=== PATIENT | male | born 1990 | race Caucasian/White ===

== ENCOUNTER 2024-04-21 13:49 | Emergency (ER) | payer OTHER ==
--- NOTE | 2024-04-21 17:21 | ED Physician Documentation ---
PD HPI HEENT - Stated complaint Stated Complaint: THROAT PX/SWELLING - Chief complaint Chief Complaint: Heent - Additional information Additional information: 34-year-old male treated for group A strep about a week and a half ago with penicillin. He was starting to feel better and then about 2-3 days ago patient started to feel ill again no fevers this time but worsening throat pain malaise and feeling rundown. He has no pertinent past medical history no difficulty breathing no chest pain or shortness of breath. PD PAST MEDICAL HISTORY - Past Medical History Past Medical History: No - Past Surgical History Past Surgical History: No - Present Medications Home Medications: Ambulatory Orders Medication Instructions Recorded Confirmed cephALEXin [Keflex] 500 mg PO BID 10 Days #20 cap 04/21/24 - Allergies Allergies/Adverse Reactions: Allergies Allergy/AdvReac Type Severity Reaction Status Date / Time No Known Drug Allergies Allergy Verified 04/21/24 14:04 - Social History Does the pt smoke?: Yes Smoking Status: Current every day smoker Does the pt drink ETOH?: No Does the pt have substance abuse?: No - Immunizations Immunizations are current?: Yes PD ED PE NORMAL - Vitals Vital signs reviewed: Yes - General General: Alert and oriented X 3, No acute distress, Well developed/nourished - HEENT HEENT: Moist mucous membranes, Other (Erythema to pharynx no exudate tonsils 2+ bilaterally) - Neck Neck: Supple, no meningeal sign - Cardiac Cardiac: RRR - Respiratory Respiratory: No respiratory distress - Abdomen Abdomen: Normal bowel sounds Results - Vitals Vitals: Vital Signs - 24 hr 04/21/24 04/21/24 14:01 18:05 Temperature 36.9 C 36.6 C Heart Rate 70 57 L Respiratory 16 16 Rate Blood Pressure 122/69 119/73 O2 Saturation 99 100 Oxygen O2 Source Room air - Labs Labs: Laboratory Tests 04/21/24 15:50 Nasal Adenovirus (PCR) NOT DETECTED Nasal B. parapertussis DNA (PCR) NOT DETECTED Nasal Coronavir 229E PCR NOT DETECTED Nasal Coronavir HKU1 PCR NOT DETECTED Nasal Coronavir NL63 PCR NOT DETECTED Nasal Coronavir OC43 PCR NOT DETECTED Nasal Enterovir/Rhinovir PCR NOT DETECTED Nasal Influenza B PCR NOT DETECTED Nasal Influenza A PCR NOT DETECTED Nasal Parainfluen 1 PCR NOT DETECTED Nasal Parainfluen 2 PCR NOT DETECTED Nasal Parainfluen 3 PCR NOT DETECTED Nasal Parainfluen 4 PCR NOT DETECTED Nasal RSV (PCR) NOT DETECTED Nasal B.pertussis DNA PCR NOT DETECTED Nasal C.pneumoniae (PCR) NOT DETECTED Ponce Human Metapneumo PCR NOT DETECTED Nasal M.pneumoniae (PCR) NOT DETECTED Nasal SARS-CoV-2 (PCR) NOT DETECTED PD Medical Decision Making - ED course ED course: 34-year-old male presents emergency department for repeat tonsillar pain and exudate he is also checked into the ER with his and his 2 children who have similar symptoms and concerns. Nasal swab was been complete and results are come back negative. His 2 children tested positive for rhinovirus and his son tested positive for strep. We went ahead and started patient on antibiotics again first dose of Keflex given here in the emergency department I went ahead with Keflex given that he was already on penicillin VK recently for group A strep. Patient was given strict ER return precautions all questions answered he is safe for discharge. Departure - Departure Disposition: 01 Home, Self Care Clinical Impression: Strep throat Instructions: ED Strep Pharyngitis Poss Prescriptions: cephALEXin [Keflex] 500 mg PO BID 10 Days #20 cap Comments: Thank you for trusting us with your care. Given that your child has tested positive for strep and you are now feeling the symptoms again it is very likely that you have strep again. We have started you on Keflex here in the emergency department here in the emergency department sent a prescription of Keflex was sent to your preferred pharmacy. You will take 500 mg twice a day in the next 10 days. we have also sent a respiratory swab to the lab and we will call you if this tested positive for anything. Go home and rest Tylenol ibuprofen for pain and discomfort follow-up with primary care provider as needed. Forms: PCP List Discharge Date/Time: 04/21/24 18:40
[2024-04-21] MEDS: IBUPROFEN 200 MG/10 ML UDC PO STA (17:47)
[2024-04-21] MEDS: PENICILLIN VK 250 MG TABLET PO STA (18:01)
[2024-04-21] MEDS: PENICILLIN G BENZATHINE 1,200,000 UNIT/2 ML SYRINGE IM STA (18:01)
[2024-04-21 18:11] VITALS: BP 119/73; O2SAT 100
[2024-04-21 18:32] LABS: B. PARAPERTUSSIS- RESP PCR PAN NOT DETECTED; B. PERTUSSIS- RESP PCR PANEL NOT DETECTED; C. PNEUMONIAE- RESP PCR PANEL NOT DETECTED; CORONAVIRUS 229E-RESP PCR NOT DETECTED; CORONAVIRUS HKU1-RESP PCR NOT DETECTED; CORONAVIRUS NL63-RESP PCR NOT DETECTED; CORONAVIRUS OC43-RESP PCR NOT DETECTED; HUMAN METAPNEUMOVIRUS NOT DETECTED; INFLUENZA A- RESP PCR PANEL NOT DETECTED; INFLUENZA B - RESP PCR PANEL NOT DETECTED; M. PNEUMONIAE- RESP PCR PANEL NOT DETECTED; PARAINFLUENZA VIRUS 1 NOT DETECTED; PARAINFLUENZA VIRUS 2 NOT DETECTED; PARAINFLUENZA VIRUS 3 NOT DETECTED; PARAINFLUENZA VIRUS 4 NOT DETECTED; RHINOVIRUS/ENTEROVIRUS NOT DETECTED; RSV- RESP PCR PANEL NOT DETECTED; SARS-CoV-2 -RESP PCR PANEL NOT DETECTED
[2024-04-21] MEDS: cephALEXin 250 MG CAPSULE PO STA (18:33)
== END 2024-04-21 18:40 | disposition home or self-care (01) ==
LOC: ED 13:49
DX: J02.0 Streptococcal pharyngitis (principal); F17.200 Nicotine dependence, unspecified, uncomplicated
CPT/HCPCS: 87633; 99283

== ENCOUNTER 2024-07-15 10:12 | Emergency (ER) | payer OTHER ==
[2024-07-15 10:59] VITALS: O2SAT 99
[2024-07-15 12:01] LABS: B. PARAPERTUSSIS- RESP PCR PAN NOT DETECTED; B. PERTUSSIS- RESP PCR PANEL NOT DETECTED; C. PNEUMONIAE- RESP PCR PANEL NOT DETECTED; CORONAVIRUS 229E-RESP PCR NOT DETECTED; CORONAVIRUS HKU1-RESP PCR NOT DETECTED; CORONAVIRUS NL63-RESP PCR NOT DETECTED; CORONAVIRUS OC43-RESP PCR NOT DETECTED; HUMAN METAPNEUMOVIRUS DETECTED; INFLUENZA A- RESP PCR PANEL NOT DETECTED; INFLUENZA B - RESP PCR PANEL NOT DETECTED; M. PNEUMONIAE- RESP PCR PANEL NOT DETECTED; PARAINFLUENZA VIRUS 1 NOT DETECTED; PARAINFLUENZA VIRUS 2 NOT DETECTED; PARAINFLUENZA VIRUS 3 NOT DETECTED; PARAINFLUENZA VIRUS 4 NOT DETECTED; RHINOVIRUS/ENTEROVIRUS DETECTED; RSV- RESP PCR PANEL NOT DETECTED; SARS-CoV-2 -RESP PCR PANEL NOT DETECTED
--- NOTE | 2024-07-15 13:16 | ED Physician Documentation ---
History of Present Illness - Stated complaint Stated Complaint: SOA COUGH - Chief complaint Chief Complaint: General - Additonal information Additional information: 34-year-old male, Aguilares, presents with cough congestion body aches fatigue. Symptoms for a couple of days. He had close contact with somebody that turned out to be COVID-positive and would like a COVID test today. He denies any fever, no respiratory distress, no abdominal pain nausea vomiting or diarrhea, no chest pain. PD PAST MEDICAL HISTORY - Past Medical History Past Medical History: No Cardiovascular: None Respiratory: None Neuro: None Endocrine/Autoimmune: None GI: None : None HEENT: None Psych: None Musculoskeletal: None Derm: None - Past Surgical History Past Surgical History: No - Present Medications Home Medications: Ambulatory Orders Medication Instructions Recorded Confirmed No Known Home Medications 07/15/24 07/15/24 - Allergies Allergies/Adverse Reactions: Allergies Allergy/AdvReac Type Severity Reaction Status Date / Time No Known Drug Allergies Allergy Verified 07/15/24 10:49 - Social History Does the pt smoke?: Yes Smoking Status: Current every day smoker Does the pt drink ETOH?: Yes Does the pt have substance abuse?: No - Immunizations Immunizations are current?: Yes - POLST Patient has POLST: No PD ED PE NORMAL - Vitals Vital signs reviewed: Yes - General General: Alert and oriented X 3, No acute distress, Well developed/nourished - HEENT HEENT: Atraumatic, Moist mucous membranes, Pharynx benign - Neck Neck: Supple, no meningeal sign, No adenopathy - Cardiac Cardiac: RRR, No murmur - Respiratory Respiratory: No respiratory distress, Clear bilaterally - Neuro Neuro: Alert and oriented X 3 Eye Opening: Spontaneous Motor: Obeys Commands Verbal: Oriented GCS Score: 15 Results - Vitals Vitals: Vital Signs - 24 hr 07/15/24 07/15/24 10:49 13:20 Temperature 37.1 C 36.5 C Heart Rate 89 81 Respiratory 16 15 Rate Blood Pressure 122/74 118/76 O2 Saturation 99 99 Oxygen O2 Source Room air - Labs Labs: Laboratory Tests 07/15/24 10:55 Nasal Adenovirus (PCR) NOT DETECTED Nasal B. parapertussis DNA (PCR) NOT DETECTED Nasal Coronavir 229E PCR NOT DETECTED Nasal Coronavir HKU1 PCR NOT DETECTED Nasal Coronavir NL63 PCR NOT DETECTED Nasal Coronavir OC43 PCR NOT DETECTED Nasal Enterovir/Rhinovir PCR DETECTED A Nasal Influenza B PCR NOT DETECTED Nasal Influenza A PCR NOT DETECTED Nasal Parainfluen 1 PCR NOT DETECTED Nasal Parainfluen 2 PCR NOT DETECTED Nasal Parainfluen 3 PCR NOT DETECTED Nasal Parainfluen 4 PCR NOT DETECTED Nasal RSV (PCR) NOT DETECTED Nasal B.pertussis DNA PCR NOT DETECTED Nasal C.pneumoniae (PCR) NOT DETECTED Ponce Human Metapneumo PCR DETECTED A Nasal M.pneumoniae (PCR) NOT DETECTED Nasal SARS-CoV-2 (PCR) NOT DETECTED PD Medical Decision Making - ED course Complexity details: reviewed results, re-evaluated patient, considered differential, d/w patient ED course: 34-year-old male presented with cough congestion fatigue body aches. He has been in contact with somebody that was COVID-positive. He is well-appearing here physical exam, afebrile nontoxic no acute distress. His physical exam is unremarkable. We obtained a respiratory viral panel which was positive for rhinovirus and metapneumovirus, negative for COVID. I discussed these viruses with the patient, advised supportive measures, and a note was provided for the next couple of days off work. Return precautions reviewed if worsening symptoms. Departure - Departure Disposition: 01 Home, Self Care Clinical Impression: Viral URI with cough Condition: Good Instructions: ED Viral Syndrome Comments: Your covid test is pending, we will notify you if positive. Treatment is supportive (otc tylenol or motrin, cough medication, rest, oral fluids). Forms: PCP List Discharge Date/Time: 07/15/24 13:20
[2024-07-15 13:27] VITALS: BP 118/76
== END 2024-07-15 13:20 | disposition home or self-care (01) ==
LOC: ED 10:12
DX: J06.9 Acute upper respiratory infection, unspecified (principal); B97.89 Other viral agents as the cause of diseases classified elsewhere; Z20.818 Contact with and (suspected) exposure to other bacterial communicable diseases; Z20.822 Contact with and (suspected) exposure to COVID-19; Z20.828 Contact with and (suspected) exposure to other viral communicable diseases
CPT/HCPCS: 87633; 99282; 99283